=== PATIENT | male | born 2000 | race Caucasian/White ===

== ENCOUNTER 2020-01-19 15:40 | Emergency (ER) | payer OTHER ==
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
[2020-01-19] MEDS ORDERED: Sodium Chloride 0.9% 1000 ML 1,000 ML IV STA (17:04)
[2020-01-19] MEDS ORDERED: Zofran 4 MG/2 ML VIAL IV ONE (17:04)
[2020-01-19] MEDS ORDERED: SUBLIMAZE 100 MCG/2 ML IV ONE (17:04)
[2020-01-19] MEDS ORDERED: Zofran 4 MG/2 ML VIAL ONE (17:07)
[2020-01-19] MEDS ORDERED: SUBLIMAZE 100 MCG/2 ML ONE (17:07)
[2020-01-19] MEDS ORDERED: Sodium Chloride 0.9% 1000 ML 1,000 ML ONE (17:08)
[2020-01-19 17:43] LABS: Appearance CLEAR (CLEAR); Bilirubin NEGATIVE (NEGATIVE); Blood NEGATIVE Ery/ul (0-5); Glucose NEGATIVE (NEGATIVE); Ketones NEGATIVE (NEGATIVE); Leukocyte Esterase NEGATIVE (NEGATIVE); Nitrite NEGATIVE (NEGATIVE); Protein,Urine Dip NEGATIVE (Negative); Specific Gravity 1.011 (1.005-1.025); Urobilinogen 4 mg/dL (0-1)
[2020-01-19 17:54] LABS: Absolute Neutrophil Ct (ANC) 9.96 (1.4-6.9); Basophil (Absolute #) 0 (0-0.4); Eosinophil % 0.2 % (0.00-5.0); Eosinophil (Absolute #) 0.02 (0-0.5); Hematocrit 42.3 % (42-50); Hemoglobin 14.8 gm/dl (12.5-18.0); Lymphocyte (Absolute #) 1.89 (1.0-4.6); Mean Cell Volume 90.6 fl (78-100); Mean Corpuscular Hemoglobin 31.7 pg (26-32); Monocytes % 5.6 % (0.0-12.0); Neutrophil % 79.2 % (36.0-66.0); Platelet Count 263 K/mm3 (150-450); Red Blood Count 4.67 M/mm3 (4.1-5.6); White Blood Count 12.6 K/mm3 (4.0-10.5)
[2020-01-19 17:59] LABS: ALBUMIN 4.5 g/dL (3.5-5.0); ALKALINE PHOSPHATASE 59 U/L (38-126); ANION GAP 10.7 MEQ/L (5-15); BLOOD UREA NITROGEN 9 mg/dL (9-20); CHLORIDE 104 mmol/L (98-107); Calcium 9.3 mg/dL (8.4-10.2); Carbon Dioxide 27 mmol/L (22-30); Creatinine 1 0.84 mg/dL (0.66-1.25); Glucose 83 mg/dL (74-106); LIPASE 110 U/L (23-300); Potassium 3.9 mmol/L (3.5-5.1); SGOT/AST 31 U/L (17-59); SGPT/ALT 18 U/L (0-50); SODIUM 139 mmol/L (137-145); Total Protein 7.4 g/dL (6.3-8.2)
[2020-01-19] MEDS ORDERED: solu-MEDROL 125 MG IM ONE (18:08)
[2020-01-19] MEDS ORDERED: DUONEB 0.5-3 MG/3 ml Neb IH ONE (18:08)
[2020-01-19 19:32] VITALS: O2SAT 99
[2020-01-19 19:39] VITALS: BP 137/74; PULSE 70
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
== END 2020-01-19 19:40 | disposition home or self-care (01) ==
LOC: ED 15:40
DX: S16.1XXA Strain of muscle, fascia and tendon at neck level, initial encounter (principal); M54.2 Cervicalgia; M54.5 Low back pain; M79.601 Pain in right arm; M79.605 Pain in left leg; M79.604 Pain in right leg; R10.9 Unspecified abdominal pain; V89.0XXA Person injured in unspecified motor-vehicle accident, nontraffic, initial encounter
CPT/HCPCS: 36415; 70450; 71260; 72125; 74177; 80053; 81001; 83690; 85025; 96360; 96374; 96375; 99285; 99291; J2405; J3010